=== PATIENT | male | born 1970 | race Caucasian/White ===

== ENCOUNTER 2021-02-13 09:00 | Outpatient (CLI) | payer MEDICAID | END 2021-02-13 23:59 | disposition home or self-care (01) | LOC: RAD 09:00 | PROVIDERS: ATTEND Psychiatry & Neurology Neurology | DX: R56.9 Unspecified convulsions (principal) | CPT/HCPCS: 95816 ==

== ENCOUNTER 2021-04-08 08:17 | Outpatient (CLI) | payer MEDICAID | END 2021-04-08 23:59 | disposition home or self-care (01) | LOC: RAD 08:17 | PROVIDERS: ATTEND Psychiatry & Neurology Neurology | DX: R94.01 Abnormal electroencephalogram [EEG] (principal); R56.9 Unspecified convulsions; Z87.820 Personal history of traumatic brain injury | CPT/HCPCS: 95819 ==

== ENCOUNTER 2022-10-02 09:15 | Outpatient (CLI) | payer MEDICAID | END 2022-10-02 23:59 | disposition home or self-care (01) | LOC: RAD 09:15 | PROVIDERS: ATTEND Nurse Practitioner Psychiatric/Mental Health | DX: Z79.899 Other long term (current) drug therapy (principal) | CPT/HCPCS: 93005 ==

== ENCOUNTER 2024-07-05 08:48 | Outpatient (CLI) | payer MEDICAID ==
--- NOTE | 2024-07-05 12:23 | ELECTROCARDIOGRAPH REPORT ---
[facility] Test Date: 2024-07-05 Test Time: 09:04:50 Pat Name: AUSTIN NEGRETE Department: PRE/OP CARDIOLOGY [id number] Room: Gender: M Manager Pest: ALE : 1970 Requested By: VASQUEZ DEJESUS Order Number: [id number] Reading MD: Dr. CAROL Velásquez Measurements Intervals [place] Rate: 75 P: 57 NM: 138 QRS: 81 QRSD: 89 T: 59 QT: 369 QTc: 413 Interpretive Statements Sinus rhythm Electronically Signed On 07-05-2024 17:37:[address] CAROL Velásquez Please click the below link to view image of tracing.
== END 2024-07-05 23:59 | disposition home or self-care (01) ==
LOC: RAD 08:48
PROVIDERS: ATTEND Nurse Practitioner Psychiatric/Mental Health
DX: F20.9 Schizophrenia, unspecified (principal); Z79.899 Other long term (current) drug therapy
CPT/HCPCS: 93005